=== PATIENT | male | born 1955 | race Caucasian/White ===

== ENCOUNTER 2022-08-07 08:56 | Day surgery (SDC) | payer MEDICARE, BC ==
[~2022-08-07 08:56] MED LIST: Lactated Ringers 1,000 ML IV SCH
[2022-08-07] MEDS ORDERED: Propofol 200 MG/20 ML SDV ONE ×3 (10:18→10:47)
[2022-08-07] MEDS ORDERED: Lidocaine 1% 6 ML ONE ×2 (10:18→10:47)
[2022-08-07] MEDS ORDERED: Midazolam 1 MG/ML 2 ML SDV ONE (10:48)
[2022-08-07] MEDS ORDERED: fentaNYL 100 MCG/2 ML SDV ONE (10:48)
== END 2022-08-07 12:13 | disposition home or self-care (01) ==
LOC: JD.SDS 08:56
PROVIDERS: ATTEND Surgery
DX: Z12.11 Encounter for screening for malignant neoplasm of colon (principal); D12.2 Benign neoplasm of ascending colon; D12.5 Benign neoplasm of sigmoid colon; K57.30 Diverticulosis of large intestine without perforation or abscess without bleeding; G89.29 Other chronic pain; M25.519 Pain in unspecified shoulder; I10 Essential (primary) hypertension; R94.5 Abnormal results of liver function studies; Z87.891 Personal history of nicotine dependence; Z80.0 Family history of malignant neoplasm of digestive organs; Z88.0 Allergy status to penicillin; Z88.1 Allergy status to other antibiotic agents; Z88.8 Allergy status to other drugs, medicaments and biological substances; Z79.899 Other long term (current) drug therapy; Z98.890 Other specified postprocedural states
CPT/HCPCS: 45385; J2250; J2704; J3010; J7120; J3490